=== PATIENT | female | born 1945 | race Hispanic/Latino ===

== ENCOUNTER → 2019-04-20 | Outpatient (CLI) | payer MEDICARE, OTHER ==
--- NOTE | 2019-04-20 13:02 | Diagnostic Imaging Report ---
Exam: Lumbar spine MRI without IV contrast History: Low back pain with sciatica. Left leg pain with burning sensation and weakness. Comparison studies: None Technique: Sagittal and axial T2 , sagittal T1 and IR, axial spin density oblique. Intravenous contrast: None Findings: Number of lumbar vertebral bodies: 5. Grade 1 approximate 7 mm degenerative anterolisthesis of L4 on L5. S-shaped thoracolumbar scoliosis with mild lumbar curvature convex to the right. Alignment: Normal lordosis. No scoliosis. Soft tissues: No T2 hyperintense inflammatory changes. Incidental partially and age exophytic T2 hyperintense 5.0 cm left inferior pole renal lesion is most likely a cyst. Paraspinal muscles: Mild symmetric fatty replaced dorsal paraspinal muscular atrophy. Lower thoracic cord: Normal in signal and morphology. The tip of the conus is at L1-2. Cauda equina: No masses or arachnoiditis. Focal crowding of the cauda equina nerve roots at L4-L5 due to severe degenerative canal stenosis as described below. Cauda equina nerve roots at L1-L2 are displaced by large disc herniation as described below. Vertebrae: No compression fractures, infection or neoplasm. Degenerative changes: T10-T11 through T12-L1: Mildly degenerated disc with loss of disc height loss of T2 disc signal. Patent canal and foramina. L1-L2: Mildly degenerated disc with loss of disc height loss of T2 disc signal. Disc bulge with superimposed 15 mm x 9 mm x 14 mm (SI x AP x TV) inferiorly migrated disc extrusion, thickened ligamentum flavum and mild facet arthrosis with moderate canal stenosis and mild bilateral foraminal stenosis. L2-L3: Mildly degenerated disc with loss of T2 disc signal. Small disc bulge and mild facet arthrosis with mild bilateral foraminal stenosis. Patent canal. L3-L4: Mildly degenerated disc with loss of disc height loss of T2 disc signal. Minimal anterolisthesis of L3 on L4 with associated uncovered disc/disc bulge asymmetric to the left, thickened ligamenta flava and bilateral facet arthrosis with moderate left foraminal stenosis, mild right foraminal stenosis and mild canal stenosis L4-L5: Mildly degenerated disc with loss of disc height loss of T2 disc signal. Mild edema present along the superior L5 endplate on the right. Grade 1 anterolisthesis of L4 and L5 with associated uncovered disc/disc bulge asymmetric to the left, thickened ligamentum flavum and severe bilateral facet arthrosis with severe canal stenosis, narrowing of the subarticular recesses and severe left foraminal stenosis with impingement on the left L4 nerve root. Patent right foramen. L5-S1: Moderately degenerated disc with loss of disc height loss of T2 disc signal with associated degenerative endplate changes, greater on the right with endplate edema. Minimal retrolisthesis of L5 on S1 with associated uncovered disc/small central disc extrusion, thickened ligamentum flavum and bilateral facet arthrosis with moderate canal stenosis, narrowing of the subarticular recesses with disc which disc abuts and may impinge on the right S1 nerve root and moderate right and mild left foraminal stenosis. Canal stenosis is accentuated by epidural fat at this level. IMPRESSION: 1. Multilevel disc degeneration, worse/moderate L5-S1 where there are degenerative endplate changes and endplate edema. 2. Moderate degenerative canal stenosis with large central disc extrusion at L1-L2. 3. Degenerative Grade 1 anterolisthesis of L4 on L5 with severe degenerative canal stenosis at L4-L5. 4. Moderate canal stenosis with impingement on the right S1 nerve root at L5-S1. 5. Multilevel degenerative foraminal stenosis, moderate left at L3-L4, severe left at L4-L5 and moderate right at L5-S1. Signed by: Dr. Jaciel Salomon M.D. on 04/20/2019 12:58 PM
== END ==
LOC: MRI 08:31
PROVIDERS: ATTEND Family Medicine
DX: M54.42 Lumbago with sciatica, left side (principal)
CPT/HCPCS: 72148

== ENCOUNTER 2019-06-09 08:43 | Outpatient (RCR) | payer MEDICARE, OTHER | END 2019-06-12 | LOC: PT 08:43 | PROVIDERS: ATTEND Neurological Surgery | DX: M51.16 Intervertebral disc disorders with radiculopathy, lumbar region (principal); M62.81 Muscle weakness (generalized) | CPT/HCPCS: 97032; 97110 ×7; 97162; G0283 ==

== ENCOUNTER 2019-07-12 08:50 | Outpatient (RCR) | payer MEDICARE | END 2019-07-13 | LOC: PT 08:50 | PROVIDERS: ATTEND Neurological Surgery | DX: M51.16 Intervertebral disc disorders with radiculopathy, lumbar region (principal) | CPT/HCPCS: 97110 ×9; 97112 ×2; G0283 ×5 ==

== ENCOUNTER 2019-07-14 08:48 | Outpatient (RCR) | payer MEDICARE | END 2019-08-12 | LOC: PT 08:48 | PROVIDERS: ATTEND Neurological Surgery | DX: M51.16 Intervertebral disc disorders with radiculopathy, lumbar region (principal) ==